=== PATIENT | male | born 1960 | race Caucasian/White ===

== ENCOUNTER → 2024-02-25 08:00 | Outpatient (REF) | payer OTHER, SELFPAY | LOC: HWRAD 08:00 | PROVIDERS: ATTENDING PHYSICIAN Physician Assistant Medical | DX: Z87.891 Personal history of nicotine dependence (principal) | CPT/HCPCS: 71271 ==

== ENCOUNTER → 2024-03-05 09:24 | Outpatient (REF) | payer OTHER, SELFPAY | LOC: PET 09:24 | PROVIDERS: ATTENDING PHYSICIAN Physician Assistant Medical | DX: R91.1 Solitary pulmonary nodule (principal) | CPT/HCPCS: 78815; A9552 ==

== ENCOUNTER 2024-05-20 05:00 | Inpatient (IN) | payer OTHER, SELFPAY ==
[2024-05-08 08:27] VITALS: BMI 30.7
[2024-05-08 09:34] LABS: % Basophils 0.8 % (0-2); % Eosinophils 1.8 % (0-6); % Immature Granulocytes 0.5 % (0-0.5); % Lymphocytes 28.4 % (20.5-51.1); % Monocytes 9.3 % (1.7-9.3); % Neutrophils 59.2 % (42.2-75.2); Absolute Basophils 0.1 10^3/uL (0-0.2); Absolute Eosinophils 0.1 10^3/uL (0-0.7); Absolute Lymphocytes 1.9 10^3/uL (1.2-3.4); Absolute Monocytes 0.6 10^3/uL (0.1-0.6); Absolute Neutrophils 3.9 10^3/uL (1.4-6.5); Hematocrit 46.9 % (39.0-52.0); Hemoglobin 16.1 g/dL (13.0-18.0); Mean Corp Hgb Conc. 34.3 g/dL (33.0-37.0); Mean Corpuscular Hgb 30.4 pg (27.0-31.0); Mean Corpuscular Volume 88.5 fL (80.0-94.0); Mean Platelet Volume 9.2 fL (7.4-10.4); Nucleated Red Blood Cells % 0 % (-); Platelet Count 234 10^3/uL (130-400); Red Cell Dist. Width 12.5 % (11.5-14.5); White Blood Cell Count 6.7 10^3/uL (4.8-10.8)
[2024-05-08 09:46] LABS: Urine Albumin Negative (Neg - Trace); Urine Bilirubin Negative (Negative); Urine Character Clear (Clear); Urine Color Yellow; Urine Glucose Negative (Negative); Urine Ketone Negative (Negative); Urine Leukocyte 1+ (Negative); Urine Nitrite Negative (Negative); Urine Occult Blood 2+ (Negative); Urine Urobilinogen Negative (Neg - 1+)
[2024-05-08 09:55] LABS: ALT (SGPT) 43 U/L (0-50); AST (SGOT) 24 U/L (17-59); Albumin 4.2 g/dl (3.5-5.0); Alkaline Phosphatase 67 U/L (38-126); Blood Urea Nitrogen 18 mg/dl (9-20); Calcium 9.2 mg/dl (8.4-10.2); Carbon Dioxide 28 mmol/L (22-30); Chloride 104 mmol/L (98-107); Direct Bilirubin 0.1 mg/dl (0.0-0.4); Estimated Creatinine Clearance 92 ml/min; Glucose 144 mg/dl (70-99); INR 0.95; Potassium 4.8 mmol/L (3.5-5.1); Sodium 138 mmol/L (135-145); Total Bilirubin 0.5 mg/dl (0.2-1.3); Total Protein 6.7 g/dl (6.3-8.2); eGFR > 60.00
[2024-05-08 09:57] LABS: APTT 29.5 Sec (23.4-35.0)
--- NOTE | 2024-05-08 10:06 | CM ---
Met with and Mrs. Mace in [facility]. He states prior to admission he resides with his spouse in a two story home. He states he has a full flight of steps to get to bedroom/full bathroom. He states he has a powder room on the first floor. He
states prior to admission he was independent with ambulation and adls. He states he does not have any DME in the home. He states he has a prescription plan. His spouse works outside the home but she does not work on Fridays so she will be home at
the end of the week and the weekend to assist in his care if needed. The discharge plan is return home with his spouse and a home visit by the Transitional Care Nurse when medically stable.
We reviewed pre-op and post-op routines. We reviewed the shower instructions. He has the soap, and written instructions. We reviewed a home visit by the Transitional Care Nurse. He is agreeable to a home visit. The plan is to for RLL lobectomy
on Saturday, May 20.
[2024-05-08 10:16] LABS: Glycohemoglobin (HgbA1c) 7.9 % (4.0-5.6)
[2024-05-08 10:29] LABS: Urine Mucus Many
[2024-05-08 10:30] LABS: Urine Amorphous Seen
[2024-05-20] VITALS (24 sets, daily range): BP systolic 86–150; BP diastolic 56–98; BMI 30.1
--- NOTE | 2024-05-20 05:36 | PTCARENOTE ---
Pt admitted to room 2262. Pt AAOx3 and ambulates independently. Pt confirmed 2 showers at home and NPO status since around 1999 last night and a couple small sips of water this morning - PA aware. Pt changed into gown. Weight and VS obtained. Pt
clipped and cleaned w/ CHG wipes. Admission questions completed and home medications confirmed. ABO drawn and sent. Pt oriented to room. PA to see pt for updated H&P. Call cedillo within reach.
--- NOTE | 2024-05-20 06:15 | W.CVOR.SURPR ---
CVOR Surgeon Immed Pre Op
-
I have examined this patient prior to performance of the scheduled procedure.
The patient's condition is unchanged from the time of the dictated/written History and
Physical and the patient is able to undergo the scheduled procedure.
RLL Wedge for Frozen Section
+/- Extended wedge
+/- LN Dissection
[2024-05-20 07:40] LABS: Urine Albumin Negative (Neg - Trace); Urine Bilirubin Negative (Negative); Urine Character Clear (Clear); Urine Color Yellow; Urine Glucose Negative (Negative); Urine Ketone Negative (Negative); Urine Leukocyte Negative (Negative); Urine Nitrite Negative (Negative); Urine Occult Blood 1+ (Negative); Urine Specific Gravity 1.005 (<1.030); Urine Urobilinogen Negative (Neg - 1+)
[2024-05-20 08:27] LABS: Urine Squamous Cell 0-2 /LPF (Few)
[2024-05-20 08:29] LABS: Urine Amorphous Seen; Urine Red Blood Cell 0-2 /HPF (0-2); Urine White Cell 0-2 /HPF (0-5)
--- NOTE | 2024-05-20 09:02 | W.PN.CT.SURG ---
CT Surgery Operative Note
-
THORACIC SURGERY OPERATIVE REPORT
Preoperative Diagnosis: Right lower nodule
Postoperative Diagnosis: Same
Procedure(s) Performed:
1. Robotic assisted thoracic surgery (RATS) right lower lobe wedge resection, therapeutic and diagnostic
2. Lymph node dissection
3. Intercostal nerve block interspaces 5, 6, 7, 8 with bupivacaine mixture
Date of Surgery: 05/20/2024
Comorbidities:
1. Right lower lobe nodule
2. Active smoker
3. Hypertension
4 but hyperlipidemia
5. Type 2 diabetes mellitus
6. Hard of hearing
7. Cataracts
Attending Surgeon: Skip Soto MD, MS
Assistants: Jeanna Fierro PA-C (present and necessary to front office assistant, exchanging robotic instruments, retraction, suction, exposure, suture management, and wound closure under my direction)
Anesthesiology: Carlin Macias MD and Marlee Howell CRNA
Scrub and Circulating RNs: Delbert Thompson, RN, Laura Friedman RN
Anesthesia: Dual Lumen GETA
EBL: 20 cc
Products: None
Indication(s) for Procedures: This is a 64-year-old male with a history of chronic dyspnea on exertion and a [id number]-iqiz smoking history. He was discovered to have a right lower lobe peripheral nodule that had no significant activity on PET CT
scan liver the size was 10 mm. Given the location the periphery of the lung, endoluminal bronchoscopy was likely unsuccessful and so he was referred for diagnostic and possible therapeutic wedge resection.
Findings: There were no obvious intrathoracic lesions concerning for metachronous disease. The right lower lobe nodule is located in the posterior lateral margin of the right lower lobe and was easily identifiable on the surface of the lung. A
wedge resection with approximately 2 cm margin was taken using multiple green load staplers. This was sent off for intraoperative frozen section. 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
evidence of malignancy. While waiting for frozen section, 2 lymph nodes were taken as they are easily accessible these were station #9 and #7. The suture line was then sealed at chest tube was placed.
Specimen(s):
Station 9, x 1 nodes
Station 7, x 1 nodes
Right lower lobe wedge
Description of Procedure: The patient was taken to the operating room. Induction via general anesthesia with endotracheal intubation was performed and peripheral venous access and arterial monitoring were inserted. Their identity and procedure to be
performed were verified and they were positioned with the right side up on the operating table. The patient was then prepped and draped in a sterile fashion. A preoperative time-out was performed with all members of the team present. A Veress
needle was used to insufflate the chest after isolating the lung. An 8 mm port was placed in the midaxillary line at approximately the eighth intercostal space and confirmed to be intrathoracic without significant pulmonary injury. The chest was
surveyed for any evidence of metastatic disease. Patient tolerate insufflation without complication. 2 additional trocars (8mm and 12mm) were placed on either side under camera guidance and a third 8 mm trocar was placed along the back. A 12 mm
bricklayer's assistant port was placed in the 11th intercostal space above the insertion of the diaphragm. An intercostal nerve block was performed at intercostal spaces 5 through 8.
The thoracic cavity was inspected for evidence of metastatic disease and none was observed. The nodule in the right lower lobe was easily identifiable. Using multiple green load staplers, the nodule was taken with a good healthy margin. This was
then placed into a small anchor bag and extracted from the chest cavity and sent for intraoperative frozen section. While waiting for IntraOp frozen section I started started with mobilization of the inferior pulmonary ligament. We worked our way
clockwise dissecting out the hilum and harvest any lymph nodes identified. At this point, frozen section was resulted and revealed a benign lesion. No further lymph node dissection was then performed. CoSeal was used to reinforce the staple line.
A chest tube was inserted through the lateral port and placed towards the apex. After confirming hemostasis, the lung was fully inflated and all ports were removed. Incisions were closed in 3 layers including the fascia, dermal, and epidermis.
Additional local anesthesia was injected into all incision sites. The skin wound was cleansed and sealed with Dermabond glue.
All instrument, sponge, and needle counts were confirmed to be correct x 2 at the end of the operation. The patient was transferred to the cardiac intensive care unit extubated in critical but stable condition.
I, Dr. Skip Soto, was present, scrubbed for, and performed all critical elements of this procedure.
Skip Soto MD, MS
Cardiothoracic Surgeon
[facility]
This operative dictation was created using the [employer] dictation system. Please excuse any grammatical, typographical, or 'sound alike' errors
[2024-05-20] MEDS: DILAUDID 0.5 MG IV ×4 (09:38→11:07)
[2024-05-20] MEDS: ANCEF IV (09:41)
[2024-05-20 10:15] LABS: Glucose - Point of Care 199 mg/dl (70-99)
[2024-05-20] MEDS: NOVOLOG vial 1 UNITS SC (10:20)
--- NOTE | 2024-05-20 11:19 | CM ---
Chart reviewed. Patient is in the OR today. Patient is independent of ADLS, lives with his in a 2 STH, 0 ROSALBA, 0 DME. Plan is for the patient to return home with CT Transitional RN.
[2024-05-20] MEDS: ANCEF 10 IV (11:34)
[2024-05-20] MEDS: ROXICODONE 5 MG PO (12:00)
[2024-05-20] MEDS: FLEXERIL 5 MG PO (12:00)
--- NOTE | 2024-05-20 12:30 | PTCARENOTE ---
pt received from PACU, oriented, in bed. SR on the monitor, HR 60-70s. SBP 100-150s. palpable pulses. pt on 2LNC, 94% POX. lungs diminished on R side. IS 1500ml. pt abdomen round, nontender. denies n/v. tolerating clears. pt states he voided in
PACU. R lateral incisions approximated, MONO. R lateral chest tube site c/d/i. PIV. L radial [place] flushed, zeroed, and calibrated. pt c/o pain, PRN meds given as ordered. see worklist for VS, I&O, and assessment.
[2024-05-20 12:41] LABS: Glucose - Point of Care 192 mg/dl (70-99)
[2024-05-20] MEDS: DILAUDID 1 MG IV ×2 (12:50→19:17)
[2024-05-20] MEDS: NEURONTIN 100 MG PO ×2 (15:05→22:51)
[2024-05-20] MEDS: ANCEF 5 IV ×2 (15:05→23:17)
[2024-05-20] MEDS: TYLENOL 1000 MG PO ×2 (15:05→22:51)
[2024-05-20] MEDS: TORADOL 15 MG IV (15:20)
[2024-05-20] MEDS: NOVOLOG FLEXPEN-MODERATE RESISTANCE 5 UNITS SC (16:24)
[2024-05-20 16:25] LABS: Glucose - Point of Care 258 mg/dl (70-99)
--- NOTE | 2024-05-20 16:37 | PTCARENOTE ---
pt VSS, no changes in assessment. pain meds given as ordered. Abimbola Nguyen dc'd as ordered, dressing c/d/i. voids in urinal.
[2024-05-20] MEDS: SENOKOT 8.6 MG PO (19:18)
[2024-05-20] MEDS: LOPRESSOR 12.5 MG PO (19:18)
--- NOTE | 2024-05-20 20:00 | PTCARENOTE ---
report received from previous RN, walking rounds done. pt in chair, at bedside. pt AAOx4, c/o pain at CT site. PRN dilaudid given. VSS. NSR on monitor, HR 60s-70s. POX 94% on 2LNC. CT x1 intact to water seal, drainage WNL. PIV intact and
patent. see worklist for full assessment, VS, and interventions. pt resting comfortably w call cedillo in reach.
[2024-05-20] MEDS: LIPITOR 40 MG PO (22:51)
[2024-05-21 01:01] VITALS: BP 122/74
[2024-05-21 05:12] VITALS: BP 127/66
[2024-05-21] MEDS: TYLENOL 1000 MG PO (05:24)
--- NOTE | 2024-05-21 05:30 | PTCARENOTE ---
VSS, no changes in assessment. NSR. POX 93% on room air. CT output minimal. AM labs drawn and sent. pt assisted OOB to chair, weight obtained. pt resting comfortably.
[2024-05-21 05:35] LABS: Hematocrit 43.9 % (39.0-52.0); Hemoglobin 15.8 g/dL (13.0-18.0); Mean Corpuscular Hgb 31.7 pg (27.0-31.0); Mean Platelet Volume 9.2 fL (7.4-10.4); Platelet Count 222 10^3/uL (130-400); Red Blood Cell Count 4.99 10^6/uL (4.70-6.10); Red Cell Dist. Width 12.5 % (11.5-14.5); White Blood Cell Count 15.4 10^3/uL (4.8-10.8)
[2024-05-21 05:55] VITALS: BMI 29.9
--- NOTE | 2024-05-21 06:05 | W.PN.CT ---
Today's Communication / Plan
-
-pod #1
-no issues overnight
-R CT on water seal since OR, no air leak with breathing or cough, put out 40/70 in 12/24 hrs
-follow CXR
-encourage IS, OOB
Assessment / Plan
-
- R lower lobe nodule - s/p Robotic assisted thoracic surgery (RATS) right lower lobe wedge resection, therapeutic and diagnostic; Lymph node dissection by Dr. Soto on 05/20/24, pod #1
- discussion with a pathologist intraoperatively revealed that the diagnosis was a benign hamartoma, no evidence of malignancy. There were no obvious intrathoracic lesions concerning for metachronous disease.
- Active smoker 70 pack year
- Hypertension
- Hyperlipidemia
- Type 2 diabetes mellitus (HgA1c 7.9)
- KERLINE
- Hard of hearing
- Cataracts
Discussed patient care with: Nursing and Care Team
Subjective
-
Date of Service: May 20, 2024
Objective Data
-
Lab Results
05/08/24 09:05
05/08/24 09:05
PT 13.0 Sec (11.4-14.6) 05/08/24 09:05
INR 0.95 05/08/24 09:05
APTT 29.5 Sec (23.4-35.0) 05/08/24 09:05
Vital Signs
Vital Signs
Temp Pulse Resp BP Pulse Ox
97.9 F 67 11 114/60 91
05/20/24 20:00 05/20/24 21:00 05/20/24 21:00 05/20/24 20:00 05/20/24 21:00
CT Intake/Output/Weight
05/20/24 05/20/24 05/21/24
06:59 18:59 06:59
Intake Total 830 / 830
Output Total 605 / 1075 470 / 1075
Balance 225 / -245 -470 / -245
SaO2: 91
Physical Exam
-
General: Awake and AOx3
Cardiovascular: Regular rate & rhythm, No Murmurs and No Rub
Respiratory: Rales (on R side, no wheeze) and Decreased Breath Sounds
Incision: Clean, Dry, Intact and Dressing Intact (no crepitus noted)
Extremities: Other (trace edema b/l, 2+ DPs b/l)
Abdomen: soft, nontender, nondistended, + bowel sounds, + flatus, no nausea
Data Reviewed
-
Lab Results: Results Reviewed
Medications: Active Meds Reviewed
Chest X-Ray: Report Reviewed and Image Reviewed
ECG: Report Reviewed and Image Reviewed
[2024-05-21 06:50] LABS: Blood Urea Nitrogen 17 mg/dl (9-20); Calcium 9.2 mg/dl (8.4-10.2); Carbon Dioxide 23 mmol/L (22-30); Chloride 102 mmol/L (98-107); Estimated Creatinine Clearance 103 ml/min; Glucose 278 mg/dl (70-99); Magnesium 2.2 mg/dl (1.6-2.3); Potassium 4.6 mmol/L (3.5-5.1); Sodium 134 mmol/L (135-145); eGFR > 60.00
--- NOTE | 2024-05-21 07:00 | W.PN.CD ---
Today's Communication / Plan
-
Routine post operative management.
Pain/chest tube management per CT surgery.
Incentive spirometry.
Ambulate.
Maintain metoprolol. Restart losartan if BP will tolerate.
Discharge planning.
Impression / Plan
-
Impression/Plan: 64 y/o male with HTN, HLD, NIDDM, and significant tobacco abuse history with suspicious pulmonary nodule admitted for elective RATS/lymph node dissection.
#RLL pulmonary nodule
-Chronic, progressive growth.
-Equivocal PET findings.
-S/P right sided RATS + lymph node dissection.
-Routine post operative management.
-Pain/chest tube management per CT surgery.
-Encourage incentive spirometry.
-Ambulate when appropriate.
#HTN
-Chronic, stable.
-Continue metoprolol.
-Resume losartan if BP allows.
#HLD
-Chronic, stable.
-Continue simvastatin, fenofibrate.
#NIDDM
-Chronic, stable.
-Insulin per primary service.
#Tobacco abuse
-Chronic, persistent.
-Encouraged cessation.
#Dispo
-Discharge planning.
Subjective/Interval History:
RATS yesterday.
Pain controlled.
DATA:
Transthoracic Echocardiogram, 08/14/2019:
CONCLUSIONS
Normal left ventricular systolic function.
Left ventricular ejection fraction is 55-60% by visual assessment.
Trace mitral regurgitation.
Mild aortic regurgitation.
Compared to the previous echo . 09/11/17 there is no significant change.
Physical Exam
Vital Signs/Labs
Vital Signs
Temp Pulse Resp BP Pulse Ox
36.7 C 65 18 127/66 93
05/21/24 05:12 05/21/24 06:00 05/21/24 05:12 05/21/24 05:12 05/21/24 05:12
05/19/24 05/20/24 05/21/24
11:59 11:59 11:59
Actual Weight 82.1 kg 81.6 kg
05/21/24 05:24
05/21/24 05:24
PT 13.0 Sec (11.4-14.6) 05/08/24 09:05
INR 0.95 05/08/24 09:05
APTT 29.5 Sec (23.4-35.0) 05/08/24 09:05
Magnesium 2.2 mg/dl (1.6-2.3) 05/21/24 05:24
Physical Exam
Constitutional: No acute distress and Comfortable
EENT: Anicteric and Moist mucous membranes
Cardiovascular: Rhythm & rate is regular, Pedal edema is absent, JVD pressure is normal, S1S2 is normal and Murmur/rub/gallop absent
Respiratory: Respiratory effort normal, Wheeze Absent, Rhonchi Absent, Crackles Present (RLL) and Other (Decreased in the right base.)
GI: Soft, Distention absent, Flat, Non tender and Normal bowel sounds
Neuro/Psych: AO x 3
Data Reviewed
-
Date of Service: May 21, 2024
Medical Decision Making: Reviewed Test Results, Independent Historian Assessment and Test Interpretation
EKG: Tracing Personally Visualized and interpreted and Report Reviewed by me
Echo: Report Reviewed by me
X-Ray/CT/US/MRI/NUC/PET: Image Personally Visualized and interpreted and Report Reviewed by me
Labs: Labs Reviewed by me
Old Records: Reviewed
[2024-05-21] MEDS: GLUCOPHAGE XR EXTENDED RELEASE 500 MG PO (07:46)
[2024-05-21] MEDS: TRICOR 48 MG PO (07:46)
[2024-05-21] MEDS: SENOKOT 8.6 MG PO (07:46)
[2024-05-21] MEDS: COZAAR 50 MG PO (07:46)
[2024-05-21] MEDS: LOPRESSOR 12.5 MG PO (07:46)
[2024-05-21] MEDS: AMARYL 4 MG PO (07:46)
[2024-05-21] MEDS: ASPIR LOW (ENTERIC COATED) 81 MG PO (07:46)
[2024-05-21] MEDS: NEURONTIN 100 MG PO (07:46)
[2024-05-21] MEDS: THERAGRAN 1 TABLET PO (07:46)
[2024-05-21] MEDS: ACTOS 30 MG PO (07:46)
[2024-05-21 07:47] LABS: Glucose - Point of Care 343 mg/dl (70-99)
[2024-05-21] MEDS: ANCEF 5 IV (07:47)
[2024-05-21] MEDS: LIDOCAINE 4% PATCH 1 PATCH TOPICAL (07:47)
[2024-05-21] MEDS: MIRALAX 17 GRAMS PO (07:47)
[2024-05-21 07:51] VITALS: BP 130/72
--- NOTE | 2024-05-21 08:00 | PTCARENOTE ---
pt received from previous RN, oriented, OOB in chair. SR on the monitor, HR 60-70s. SBP 130s. palpable pulses. pt on RA, 97% POX. CTx1 to WS, no air leak or crepitus noted. IS encouraged. pt abdomen round, nontender. denies n/v. tolerating diet. pt
voids. R lateral incisions approximated, NETWORK SPECIALIST. R lateral chest tube site c/d/i. PIV. see worklist for VS, I&O, and assessment.
--- NOTE | 2024-05-21 08:42 | W.DCSUMMARY ---
Addendum entered and electronically signed by RITCHIE Castillo 05/21/24 11:54:
Patient instructed not to drive while taking narcotics
Original Note:
Discharge Summary
Discharge Data
Date of Admission: 05/20/24
Date of Discharge: 05/21/24
-
Pending Results: No
Hospital Course
Primary care physician: Yisel Ortiz
Drill Instructor: Dr. Gómez
Outpatient Fire Systems Inspector: Charly Taylor
Inpatient consultants: [facility] cardiology, Pulmonary linux unix administrator
Procedures:
1. Robotic assisted left lower lobe wedge resection and lymph node dissection
Primary Diagnosis:
1. Right lower lobe lung nodule
Secondary Diagnoses:
1. Tobacco abuse-Active smoker (70 pk/yr)
2. Hypertension
3. Hyperlipidemia
4. Type 2 diabetes mellitus (A1C 7.9)
5. Hard of hearing
6. Cataracts
HPI: 64-year-old male with history of chronic exertional dyspnea and heavy tobacco use was found to have a right lower lobe nodule on CT scan and electively admitted on 05/20/2024 for wedge resection.
Hospital course: Patient underwent robotic assisted thoracic surgery (RATS) right lower lobe wedge resection, and lymph node dissection by Dr. Skip Soto. Frozen section was negative for malignancy. Patient was extubated in the operating room
and admitted to PACU on water seal. No pneumothorax was identified on the postprocedure x-ray and patient transition to CVICU. Patient remained in waterseal throughout the night and morning x-ray revealed no pneumothorax. The right chest tube was
removed without difficulty and follow-up chest x-ray reported no pneumothorax. Patient will continue on metoprolol succinate for A-fib prophylaxis. He will continue cyclobenzaprine, gabapentin, and acetaminophen for incisional pain.
Home medication changes:
Cyclobenzaprine, gabapentin, and acetaminophen for incisional pain
Metoprolol succinate for A-fib prophylaxis due to lung surgery
Discharge Plan
-
Patient Disposition: Home (Routine Discharge)
Discharge Diagnosis/Procedures: right lower lobe lobectomy + lymph node dissection
Condition: Good
Diet: Diabetic, Carb Controlled
Activity: No strenuous activity
Driving Restrictions: Not until seen by your Dr
Bathing Restrictions: OK to Shower
Specialty Instructions: Weigh Daily- Call MD for wt gain/loss 3 lbs overnight/5 lbs in 1 week
Referrals:
CT Transitional Care Nurse [Outside] (The Cardiothoracic Transitional Care Nurse will call you to set up a visit in 1-2 days.)
Yisel Ortiz PA [Family Provider] -
Skip Soto MD [Active] - 06/08/24 2:45 pm
Prescriptions:
New
acetaminophen [Tylenol Extra Strength] 500 mg Tablet
1,000 mg PO TID@0600,1400,2200 Qty: 0 0RF
cyclobenzaprine 10 mg Tablet
5 mg PO Q8HPRN PRN (Reason: muscle spasm) Qty: 30 0RF
metoprolol succinate [Toprol XL] 25 mg tablet extended release 24 hr
25 mg PO DAILY Qty: 30 0RF
gabapentin 100 mg Capsule
100 mg PO TID Qty: 30 0RF
oxycodone 5 mg Tablet
5 mg PO Q4HPRN PRN (Reason: severe pain) Qty: 30 0RF
Continued
multivitamin Tablet
1 tab PO DAILY
losartan 50 mg Tablet
50 mg PO DAILY
simvastatin 40 mg Tablet
40 mg PO HS
glimepiride 4 mg Tablet
4 mg PO DAILY
pioglitazone 30 mg Tablet
30 mg PO DAILY
metformin 500 mg Tablet Extended Release 24 Hr
500 mg PO DAILY
omega [id number] oil [Fish Oil] 1,000 (120-180) mg Capsule
3 cap PO DAILY
aspirin 81 mg Capsule
81 mg PO DAILY
fenofibrate nanocrystallized 48 mg Tablet
48 mg PO DAILY
Discharge Orders:
Discharge Patient (As Directed); Ordered 05/21/24
Ordered By: Nedra Chase
Care Plan Goals
Care Plan Goals:
Problem: Readiness for enhanced knowledge related to diagnosis and treatment plan
Goal: Understand your diagnosis and treatment plan needs, including medications if applicable.
Instructions: Know your diagnosis, underlying causes and treatment plan options, including medications if applicable. Consult with your health care team to learn about your diagnosis and treatment plan, including medications if applicable.
Discharge Date and Time
Print Language: AMHARIC
[2024-05-21] MEDS: NOVOLOG FLEXPEN-MODERATE RESISTANCE SC (08:45)
--- NOTE | 2024-05-21 08:51 | PTCARENOTE ---
pt placed back to bed, R lat CT dc'd by AS400 OPERATOR, dressing c/d/i. CXR completed. ambulating in room independently.
--- NOTE | 2024-05-21 11:17 | CM ---
Chart reviewed. Patient is independent of ADLS, lives with his in a 2 STH, 0 ROSALBA, 0 DME. Plan is for the patient to return home with CT Transitional RN. CM to follow
[2024-05-21 11:43] VITALS: BP 105/61
[2024-05-21 12:05] LABS: Glucose - Point of Care 227 mg/dl (70-99)
--- NOTE | 2024-05-21 12:23 | PTCARENOTE ---
pt VSS, pt discharged home w/ , discharge instructions reviewed w/ patient. home meds reviewed. pt aware he is not allowed to drive on oxycodone, gabapentin or Flexeril per DIRECTOR UNDERWRITER SALES. tele and IV dc'd. pt dressed self. pt left w/ all belongings.
[2024-05-21 19:52] LABS: Hepatitis C Antibody Negative (Negative)
== END 2024-05-21 13:28 | disposition home or self-care (01) | DRG 165 ==
LOC: CVICU 05:00
PROVIDERS: Clinical Nurse Specialist Acute Care; ADMITTING PHYSICIAN Thoracic Surgery (Cardiothoracic Vascular Surgery); FAMILY PHYSICIAN Physician Assistant Medical; OTHER PHYSICIAN Internal Medicine Cardiovascular Disease
PROC: 07T74ZZ Resection of Thorax Lymphatic, Percutaneous Endoscopic Approach (ICD-10-PCS; 2024-05-20)
PROC: 0BBF4ZZ Excision of Right Lower Lung Lobe, Percutaneous Endoscopic Approach (ICD-10-PCS; 2024-05-20)
PROC: 8E0W4CZ Robotic Assisted Procedure of Trunk Region, Percutaneous Endoscopic Approach (ICD-10-PCS; 2024-05-20)
DX: R91.1 Solitary pulmonary nodule (principal); E78.2 Mixed hyperlipidemia; E11.36 Type 2 diabetes mellitus with diabetic cataract; I10 Essential (primary) hypertension; G47.33 Obstructive sleep apnea (adult) (pediatric); F17.210 Nicotine dependence, cigarettes, uncomplicated; Z79.82 Long term (current) use of aspirin; Z79.84 Long term (current) use of oral hypoglycemic drugs; Z79.899 Other long term (current) drug therapy
CPT/HCPCS: 88305; 88307; 88332; 32505; 36415; 71045; 80048; 80053; 81003; 81015; 82248; 82962; 83036; 83735; 85025; 85027; 85610; 85730; 86803; 86850; 86900; 86901; 87070; 87086; 88331; 93005

== ENCOUNTER → 2024-06-11 08:03 | Outpatient (REF) | payer OTHER, SELFPAY | LOC: HWRAD 08:03 | PROVIDERS: ATTENDING PHYSICIAN Thoracic Surgery (Cardiothoracic Vascular Surgery); FAMILY PHYSICIAN Physician Assistant Medical | DX: D14.31 Benign neoplasm of right bronchus and lung (principal); Z98.890 Other specified postprocedural states | CPT/HCPCS: 71046 ==

== ENCOUNTER → 2024-07-28 06:47 | Outpatient (REF) | payer OTHER, SELFPAY ==
[2024-07-28 09:56] LABS: Hematocrit 45.4 % (39.0-52.0); Hemoglobin 15.9 g/dL (13.0-18.0); Mean Corpuscular Hgb 30.6 pg (27.0-31.0); Mean Corpuscular Volume 87.5 fL (80.0-94.0); Mean Platelet Volume 9.5 fL (7.4-10.4); Platelet Count 224 10^3/uL (130-400); Red Blood Cell Count 5.19 10^6/uL (4.70-6.10); Red Cell Dist. Width 12.3 % (11.5-14.5); White Blood Cell Count 8.2 10^3/uL (4.8-10.8)
[2024-07-28 11:21] LABS: Glycohemoglobin (HgbA1c) 8.1 % (4.0-5.6)
[2024-07-28 11:55] LABS: ALT (SGPT) 37 U/L (0-50); AST (SGOT) 24 U/L (17-59); Albumin 3.8 g/dl (3.5-5.0); Alkaline Phosphatase 64 U/L (38-126); Blood Urea Nitrogen 13 mg/dl (9-20); Calcium 9.3 mg/dl (8.4-10.2); Carbon Dioxide 24 mmol/L (22-30); Chloride 112 mmol/L (98-107); Glucose 168 mg/dl (70-99); HDL Cholesterol 34 mg/dl; LDL Cholesterol, Calculated 53 mg/dl; Potassium 4.3 mmol/L (3.5-5.1); Sodium 140 mmol/L (135-145); Total Bilirubin 0.5 mg/dl (0.2-1.3); Total Cholesterol 129 mg/dl (50-199); Total Protein 6.3 g/dl (6.3-8.2); Triglyceride 214 mg/dl (10-149); Very Low Density Lipoprotein 42 mg/dl (0-30); eGFR > 60.00
[2024-07-28 12:04] LABS: Urine Protein 5 mg/dl
[2024-07-28 12:06] LABS: Microalbumin, Random Urine 3.3 mg/dl (0.6-1.7); Microalbumin/creatinine Ratio 16.3 mg/g
== END ==
LOC: HWLAB 06:47
PROVIDERS: ATTENDING PHYSICIAN Physician Assistant; FAMILY PHYSICIAN Physician Assistant Medical; REFERRING PHYSICIAN Otolaryngology
DX: E11.65 Type 2 diabetes mellitus with hyperglycemia (principal); E78.5 Hyperlipidemia, unspecified; H65.21 Chronic serous otitis media, right ear; H90.3 Sensorineural hearing loss, bilateral
CPT/HCPCS: 36415; 80053; 80061; 82043; 82570; 83036; 84156; 84443; 85027; 93005

== ENCOUNTER 2024-08-20 06:04 | Day surgery (SDC) | payer OTHER, SELFPAY ==
--- NOTE | 2024-08-19 08:34 | PTCARENOTE ---
Patients 07/28 A1C- 8.1 message left for Mel/Krystian @ Dr. Christy's office
[2024-08-20] VITALS (7 sets, daily range): BP systolic 103–124; BP diastolic 63–76; BMI 29.6
[2024-08-20 08:40] LABS: Glucose - Point of Care 169 mg/dl (70-99)
[2024-08-20] MEDS: NORMOSOL-R/PLASMALYTE-A 1000 IV (08:42)
[2024-08-20 10:44] LABS: Glucose - Point of Care 156 mg/dl (70-99)
== END 2024-08-20 11:17 | disposition home or self-care (01) ==
LOC: SDS 06:04
PROVIDERS: ATTENDING PHYSICIAN Otolaryngology
DX: H65.21 Chronic serous otitis media, right ear (principal); H90.3 Sensorineural hearing loss, bilateral
CPT/HCPCS: 69436; 82962